=== PATIENT | female | born 1970 | race Caucasian/White ===

== ENCOUNTER 2018-09-14 12:18 | Inpatient (IN) | payer OTHER ==
[~2018-09-14] VITALS: Ht 157.5 cm; Wt 65.5 kg
[2018-09-14] VITALS (26 sets, daily range): BP systolic 65–118; BP diastolic 35–68
[2018-09-14 12:50] LABS: MCH 30.4 pg (26.0-34.0); MCHC 33.4 g/dL (28.0-37.0)
[2018-09-14 12:51] LABS: ABSOLUTE NEUTROPHILS 8.8 thou/uL (1.4-8.2); BASOPHILS 0.7 % (0.0-2.0); EOSINOPHILS 3.3 % (0.0-3.0); LYMPHOCYTES 24.2 % (24.0-44.0); MCV 91.1 fL (80.0-100.0); MONOCYTES 7.7 % (1.0-8.0); PLATELET COUNT 387 thou/uL (150-400); POLYS 64.1 % (36.0-66.0); RDW 15.8 % (10.5-14.5); WBC 13.8 thou/uL (4.0-11.0)
[2018-09-14 12:56] LABS: HEMATOCRIT 17.3 % (37.0-47.0); HEMOGLOBIN 5.8 gm/dL (12.0-15.0)
[2018-09-14] MEDS ORDERED: HUMALOG100 UNIT/1 SUBQ ×2 (13:17→14:03)
[2018-09-14] MEDS ORDERED: LANTUS100 UNIT/M SUBQ ×2 (13:17→14:04)
[2018-09-14] MEDS ORDERED: XANAX 0.5 MG0.5 M1 PO ×2 (13:18→14:05)
[2018-09-14] MEDS ORDERED: TYLENOL EXTRA500 MG PO (13:18)
[2018-09-14] MEDS ORDERED: ASPIR-LOW81 MG PO (13:19)
[2018-09-14] MEDS ORDERED: AMITRIPTYLINE H25 M2 PO ×2 (13:19→14:05)
[2018-09-14] MEDS ORDERED: COLACE100 MG PO ×2 (13:19→14:06)
[2018-09-14] MEDS ORDERED: PLAVIX 75 MG TA75 M1 PO ×2 (13:19→14:05)
[2018-09-14] MEDS ORDERED: CYMBALTA20 MG PO (13:21)
[2018-09-14] MEDS ORDERED: IRON325 PO ×2 (13:21→14:07)
[2018-09-14] MEDS ORDERED: DULERA 100 MCG/13 GM INH ×2 (13:21→14:07)
[2018-09-14] MEDS ORDERED: NEURONTIN600 MG PO ×2 (13:21→14:08)
[2018-09-14] MEDS ORDERED: IBUPROFEN 800800 M1 PO ×2 (13:22→14:08)
[2018-09-14] MEDS ORDERED: MELATONIN5 M1 PO ×2 (13:22→14:08)
[2018-09-14] MEDS ORDERED: ROBAXIN 750 MG750 M1 PO ×2 (13:23→14:09)
[2018-09-14] MEDS ORDERED: PROTONIX40 M1 PO ×2 (13:23→14:09)
[2018-09-14 13:24] LABS: INR 1.1
[2018-09-14] MEDS ORDERED: SENNA PLUS TAB1 EACH PO (13:24)
[2018-09-14] MEDS ORDERED: SPIRIVA INH ×2 (13:24→14:10)
[2018-09-14] MEDS ORDERED: PAXIL40 MG PO (13:24)
[2018-09-14] MEDS ORDERED: XARELTO20 MG PO ×2 (13:25→14:11)
[2018-09-14] MEDS ORDERED: OXYCODONE HCL15 MG PO (13:25)
[2018-09-14] MEDS ORDERED: SYMBICORT160 MCG/4. INH ×2 (13:25→14:11)
[2018-09-14] MEDS ORDERED: HYDROXYZINE HCL25 M1 PO (13:32)
[2018-09-14] MEDS ORDERED: VENTOLIN HFA 1818 GM INH ×2 (13:32→14:13)
[2018-09-14] MEDS ORDERED: HYDROGEL TOP (13:33)
[2018-09-14] MEDS ORDERED: NICOTINE TRANSD21 M1 (13:35)
[2018-09-14 13:40] LABS: ALBUMIN 2.8 g/dL (3.4-5.0); ANION GAP 11 mmol/L (7-16); BUN 25 mg/dL (7-18); CALCIUM 8.1 mg/dL (8.5-10.1); CHLORIDE 103 mmol/L (98-107); CO2 25 mmol/L (21-32); CREATININE 1.4 mg/dL (0.6-1.0); GLUCOSE 194 mg/dL (74-106); SGOT 17 U/L (15-37); SGPT 16 U/L (30-65); SODIUM 139 mmol/L (136-145); TOTAL BILIRUBIN 0.2 mg/dL (<0.1-1.0); TOTAL PROTEIN 5.6 g/dL (6.4-8.2); TROPONIN-I <0.06 ng/mL (<0.06)
[2018-09-14] MEDS ORDERED: TYLENOL325 M1 PO (14:04)
[2018-09-14] MEDS ORDERED: ASPIR 8181 MG PO (14:05)
[2018-09-14] MEDS ORDERED: PAXIL10 MG PO (14:09)
[2018-09-14] MEDS ORDERED: SENNA8.6 MG PO (14:10)
[2018-09-14 14:11] LABS: URINE BILIRUBIN NEGATIVE (Negative); URINE BLOOD TRACE (Negative); URINE CLARITY CLEAR; URINE COLOR YELLOW; URINE GLUCOSE-RANDOM* NEGATIVE (Negative); URINE KETONES NEGATIVE (Negative); URINE LEUKOCYTES-REFLEX NEGATIVE (Negative); URINE NITRITE-REFLEX NEGATIVE (Negative); URINE PROTEIN (DIPSTICK) TRACE (Negative); URINE UROBILINOGEN 0.2 E.U./dl (0.2-1.0)
[2018-09-14] MEDS ORDERED: OXYCONTIN20 M1 PO (14:12)
[2018-09-14] MEDS ORDERED: HYDROXYZINE HCL25 M2 PO (14:13)
[2018-09-14 14:20] LABS: AMP/METHAMP Negative (Negative); BARBITURATES Negative (Negative); BENZODIAZEPINES POSITIVE (Negative); COCAINE Negative (Negative); METHADONE Negative (Negative); OPIATES POSITIVE (Negative); PCP Negative (Negative)
[2018-09-14 15:00] LABS: SQUAMOUS 0-3 Few /LPF (0-3)
[2018-09-14 15:03] LABS: CASTS None Seen /LPF (None Seen); CRYSTALS None Seen /LPF (None Seen); TRANSITIONAL EPITHEL CELL >10 Many /LPF (None Seen); URINE RBC 0-2 Rare /HPF (0-2); URINE WBC-REFLEX 0-5 Rare /HPF (0-5)
[2018-09-14 15:05] LABS: RENAL EPITHELIAL CELLS 0-3 Few /LPF (None Seen)
[2018-09-14 15:59] LABS: CALCIUM 7.3 mg/dL (8.5-10.1); CREATININE 1.2 mg/dL (0.6-1.0); POTASSIUM 3.8 mmol/L (3.5-5.1)
[2018-09-15] VITALS (29 sets, daily range): BP systolic 87–139; BP diastolic 39–109
[2018-09-15 05:00] LABS: HEMATOCRIT 21.5 % (37.0-47.0); HEMOGLOBIN 7.1 gm/dL (12.0-15.0); MCH 29.5 pg (26.0-34.0); MCHC 32.9 g/dL (28.0-37.0); MCV 89.7 fL (80.0-100.0); RBC 2.39 mil/uL (4.20-5.00); WBC 11.5 thou/uL (4.0-11.0)
[2018-09-15 05:06] LABS: CALCIUM 7.5 mg/dL (8.5-10.1); CREATININE 0.4 mg/dL (0.6-1.0); POTASSIUM 3.8 mmol/L (3.5-5.1)
[2018-09-15] MEDS ORDERED: OXYCODONE HCL10 MG PO (12:46)
[2018-09-15] MEDS ORDERED: ALPRAZOLAM 0.0.25 M1 PO (12:46)
--- NOTE | 2018-09-15 16:28 | EKG ---
[address] [address] ELECTROCARDIOGRAM REPORT Name: CESIA ROMAN Room #: 240-P ADM IN M.R.#: [id number] ������������������ Admission: 09/14/18 ������������������ Attend Phys: Win Reyes MD Discharge: ������������������ Date of : 72 Report #: [id number] ����������������������������������������������������������������� [id number] THIS REPORT FOR: //name// [facility] ED Test Date: 2018-09-14 Test Time: 13:16:21 Pat Name: CESIA ROMAN Department: Room: 240 Gender: F [employer] Computer Operator: christian : 1970 Requested By: Hermilo Lebron Order Number: [id number] MD: Neo Alfaro Measurements Intervals [place] Rate: 103 P: 75 FL: 143 QRS: 60 QRSD: 95 T: 70 QT: 386 QTc: 506 Interpretive Statements Sinus tachycardia Baseline wander in lead(s) V1,V2,V3 No previous ECG available for comparison Electronically Signed On 09-15-2018 16:28:44 CDT by Neo Alfaro [email or web address] ��������������������������������������������� <ELECTRONICALLY SIGNED> ���������������������������������������� By: Neo Alfaro MD ��������������������������������������������� 09/15/18 1628 15 Neo Alfaro MD /CHARLI
== END 2018-09-15 18:15 | DRG 760 ==
LOC: ER 12:18 → EROBS 13:41 → ICU 14:32
PROVIDERS: Emergency Medicine; ADMIT Internal Medicine
PROC: 30233N1 Transfusion of Nonautologous Red Blood Cells into Peripheral Vein, Percutaneous Approach (ICD-10-PCS; principal; 2018-09-14)
DX: N93.9 Abnormal uterine and vaginal bleeding, unspecified (principal); G92 Toxic encephalopathy; F11.20 Opioid dependence, uncomplicated; D62 Acute posthemorrhagic anemia; N92.0 Excessive and frequent menstruation with regular cycle; F32.9 Major depressive disorder, single episode, unspecified; E11.9 Type 2 diabetes mellitus without complications; I95.9 Hypotension, unspecified; G89.4 Chronic pain syndrome; D64.9 Anemia, unspecified; N93.8 Other specified abnormal uterine and vaginal bleeding; F12.90 Cannabis use, unspecified, uncomplicated; Z79.82 Long term (current) use of aspirin; Z79.899 Other long term (current) drug therapy; Z89.612 Acquired absence of left leg above knee; Z86.718 Personal history of other venous thrombosis and embolism; Z79.01 Long term (current) use of anticoagulants
CPT/HCPCS: 10078

== ENCOUNTER 2019-02-01 02:28 | Emergency (ER) | payer OTHER ==
[~2019-02-01] VITALS: Ht 157.5 cm; Wt 62.1 kg
[~2019-02-01 02:28] MED LIST: ALPRAZOLAM 0.0.25 M1 PO; AMITRIPTYLINE H25 M2 PO; ASPIR 8181 MG PO; ASPIR-LOW81 MG PO; COLACE100 MG PO; CYMBALTA20 MG PO; DULERA 100 MCG/13 GM INH; HUMALOG100 UNIT/1 SUBQ; HYDROGEL TOP; HYDROXYZINE HCL25 M1 PO; HYDROXYZINE HCL25 M2 PO; IBUPROFEN 800800 M1 PO; IRON325 PO; LANTUS100 UNIT/M SUBQ; MELATONIN5 M1 PO; NEURONTIN600 MG PO; NICOTINE TRANSD21 M1; OXYCODONE HCL10 MG PO; OXYCODONE HCL15 MG PO; OXYCONTIN20 M1 PO; PAXIL10 MG PO; PAXIL40 MG PO; PLAVIX 75 MG TA75 M1 PO; PROTONIX40 M1 PO; ROBAXIN 750 MG750 M1 PO; SENNA PLUS TAB1 EACH PO; SENNA8.6 MG PO; SPIRIVA INH; SYMBICORT160 MCG/4. INH; TYLENOL EXTRA500 MG PO; TYLENOL325 M1 PO; VENTOLIN HFA 1818 GM INH; XANAX 0.5 MG0.5 M1 PO; XARELTO20 MG PO
[2019-02-01] MEDS ORDERED: OXYCODONE HCL 55 MG PO (02:44)
[2019-02-01] MEDS ORDERED: DULERA 100 MCG/13 GM INH (02:46)
[2019-02-01] MEDS ORDERED: HYDROXYZINE HCL50 MG PO (02:50)
[2019-02-01] MEDS ORDERED: IBUPROFEN 800800 M1 PO (02:51)
[2019-02-01] MEDS ORDERED: SEROQUEL 50 MG50 MG PO (02:54)
[2019-02-01] MEDS ORDERED: TUDORZA PRESS400 MCG INH (02:55)
[2019-02-01] MEDS ORDERED: NORCO 5-325 TA1 EAC1 PO (02:55)
[2019-02-01 03:23] LABS: ABSOLUTE NEUTROPHILS 6.5 thou/uL (1.4-8.2); BASOPHILS 0.6 % (0.0-2.0); EOSINOPHILS 3.4 % (0.0-3.0); HEMATOCRIT 28.4 % (37.0-47.0); HEMOGLOBIN 9.2 gm/dL (12.0-15.0); LYMPHOCYTES 28.6 % (24.0-44.0); MCH 28.1 pg (26.0-34.0); MCHC 32.5 g/dL (28.0-37.0); MCV 86.6 fL (80.0-100.0); MONOCYTES 7.6 % (1.0-8.0); PLATELET COUNT 433 thou/uL (150-400); POLYS 59.8 % (36.0-66.0); RBC 3.28 mil/uL (4.20-5.00); RDW 14.4 % (10.5-14.5); WBC 10.8 thou/uL (4.0-11.0)
[2019-02-01 03:31] LABS: CALCIUM 8.2 mg/dL (8.5-10.1); CREATININE 0.9 mg/dL (0.6-1.0)
[2019-02-01 04:05] LABS: URINE BILIRUBIN NEGATIVE (Negative); URINE BLOOD TRACE (Negative); URINE CLARITY CLEAR; URINE COLOR YELLOW; URINE GLUCOSE-RANDOM* 3+ (Negative); URINE KETONES NEGATIVE (Negative); URINE LEUKOCYTES-REFLEX NEGATIVE (Negative); URINE NITRITE-REFLEX NEGATIVE (Negative); URINE PROTEIN (DIPSTICK) NEGATIVE (Negative); URINE UROBILINOGEN 0.2 E.U./dl (0.2-1.0)
[2019-02-01 07:05] VITALS: BP 122/63
== END 2019-02-01 07:09 ==
LOC: ER 02:28
PROVIDERS: Emergency Medicine
DX: N93.8 Other specified abnormal uterine and vaginal bleeding (principal); E11.65 Type 2 diabetes mellitus with hyperglycemia; F17.210 Nicotine dependence, cigarettes, uncomplicated; F32.9 Major depressive disorder, single episode, unspecified; G89.4 Chronic pain syndrome; Z86.718 Personal history of other venous thrombosis and embolism; Z86.2 Personal history of diseases of the blood and blood-forming organs and certain disorders involving the immune mechanism; Z79.4 Long term (current) use of insulin